=== PATIENT | male | born 1985 | race Caucasian/White ===

== ENCOUNTER 2024-11-24 14:36 | Inpatient (IN) | payer BC, SELFPAY ==
[2024-11-24] VITALS (9 sets, daily range): BP systolic 86–130; BP diastolic 62–99; BMI 21.8
[2024-11-24] MEDS: DILAUDID 1 MG IV ×2 (11:05→12:19)
[2024-11-24] MEDS: ZOFRAN 4 MG IV ×3 (11:05→23:19)
[2024-11-24] MEDS: NSS 1000 IV ×3 (11:05→17:04)
[2024-11-24 11:08] LABS: Hematocrit 43.5 % (39.0-52.0); Hemoglobin 15.8 g/dL (13.0-18.0); Mean Corp Hgb Conc. 36.3 g/dL (33.0-37.0); Mean Corpuscular Volume 80.7 fL (80.0-94.0); Nucleated Red Blood Cells % 0 % (-); Platelet Count 475 10^3/uL (130-400); Red Cell Dist. Width 13.1 % (11.5-14.5)
[2024-11-24 11:22] LABS: ALT (SGPT) 101 U/L (0-50); AST (SGOT) 75 U/L (17-59); Albumin > 6.0 g/dl (3.5-5.0); Alkaline Phosphatase 141 U/L (38-126); Blood Urea Nitrogen 40 mg/dl (9-20); Calcium 10.7 mg/dl (8.4-10.2); Carbon Dioxide 24 mmol/L (22-30); Chloride 90 mmol/L (98-107); Glucose 140 mg/dl (70-99); Potassium 3.9 mmol/L (3.5-5.1); Sodium 133 mmol/L (135-145); Total Protein 9.5 g/dl (6.3-8.2); eGFR 43.00
--- NOTE | 2024-11-24 11:25 | ED.GENMED ---
History of Present Illness
General
Chief Complaint: Generalized Pain
Source: patient
Exam Limitations: none
Time Seen by Provider: 11/24/24 10:58
History of Present Illness
History of Present Illness:
39-year male presents with abdominal cramping body cramps nausea vomiting he has a history of an ileostomy from chronic bowel issues, which he takes Dupixent for surgery was 2 years ago at [facility], also uses Percocet twice a day for chronic pain,
no meds for about 4 days after he had outpatient rotator cuff surgery by Dr. Love
Has been out of keep any fluids down as well, just had a little bit of liquid in his ostomy
Past History
Past History
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
ED Past Surgical History: Bowel resection and Orthopedic
Social History
Tobacco: Non-smoker
Alcohol: None
Personal:
Living: with family
Employment: Employed
Review of Systems
Review of Systems
All Other Systems: Not applicable
Constitutional: Reports sleep disturbance; Denies fever or fatigue
EENT: Reports no symptoms
Respiratory: Reports no symptoms
ABD/GI: Reports abdominal pain, nausea and vomiting
: Reports no symptoms
Musculoskeletal: Reports muscle stiffness
Neurological: Reports weakness
Psychiatric: Reports anxiety
Phy Exam
Physical Exam
Physical Exam:
Physical Exam
General: Anxious uncomfortable male
Neck: Lips are dry
Heart: s1/s2 regular rate and rhythm, no murmur. equal radial pulses.
Lungs: no acute respiratory distress. clear bilaterally
Abdomen: Soft, mild diffuse tenderness liquid in his ostomy bag
Neuro: alert and oriented. no focal neurological deficits
Skin: no rash
Psychiatric: Anxious redirectable cooperative
Extremities: no edema.
Course
Orders/Labs/Results
Orders:
Orders
11/24/24 10:59
Complete Blood Count/With Diff Urgent
Comprehensive Metabolic Panel Urgent
11/24/24 11:01
0.9% Sodium Chloride 1000 ml [Nss] 1,000 ml IV BOLUS
HYDROmorphone [Dilaudid] 1 mg IV NOW STA
Ondansetron Injectable [Zofran] 4 mg IV NOW STA
11/24/24 11:02
Add On- LAB Urgent
Tests Added?: lipase
Electrocardiogram (*1) Urgent
Reason for Study: CAD
EKG- Treatment ONCE
11/24/24 11:44
CT Abd/pel Without Iv Or Oral Urgent
Comment:
Reason For Exam: vomiting ARF
NSS 1000mL Bolus WIDE OPEN 0.9% Sodium Chloride 1000 ml [Nss] 1,000 ml IV BOLUS
Abnormal Lab Results
11/24/24
10:59
Plt Count 475 H 10^3/uL
(130-400)
Absolute Monos (auto) 0.8 H 10^3/uL
(0.1-0.6)
Monocytes % 9.9 H %
(1.7-9.3)
Sodium 133 L mmol/L
(135-145)
Chloride 90 L mmol/L
(98-107)
BUN 40 H mg/dl
(9-20)
Creatinine 2.0 H mg/dL
(0.7-1.3)
Glucose 140 H mg/dl
(70-99)
Calcium 10.7 H mg/dl
(8.4-10.2)
Total Bilirubin 1.7 H mg/dl
(0.2-1.3)
AST 75 H U/L
(17-59)
ALT 101 H U/L
(0-50)
Alkaline Phosphatase 141 H U/L
(38-126)
Total Protein 9.5 H g/dl
(6.3-8.2)
Albumin > 6.0 H g/dl
(3.5-5.0)
11/24/24 10:59
11/24/24 10:59
Vital Signs
Initial and Last Documented VS:
Initial Vital Signs
Temp Pulse Resp BP Pulse Ox
98.3 F 104 18 117/77 100
11/24/24 10:47 11/24/24 10:47 11/24/24 10:47 11/24/24 10:47 11/24/24 10:47
Last Documented Vital Signs
Temp Pulse Resp BP Pulse Ox
98.3 F 122 34 117/77 100
11/24/24 10:47 11/24/24 10:50 11/24/24 10:50 11/24/24 11:07 11/24/24 11:30
MDM/Problems Addressed
Differential Diagnosis Includes:
Dehydration, narcotic withdrawal anesthesia effect doubt obstruction
MDM/Problems Addressed:
Nausea vomiting pain
Chronic conditions affecting care:
Bowel resection chronic pain
Acute Exacerbation and/or Progression of Chronic Illness:
Bowel resection chronic pain
*Pulse Oximetry
SaO2: 99
Oxygen Mode of Delivery: Room air
Patient hypoxic: no
*EKG
Interpreted by ED Provider?: Yes
Interpretation: normal
Comparison EKG: no comparison EKG present
Heart Rate: 78
Rate: normal
Rhythm: sinus
Ischemia: non-specific ST changes
*Assistant Loan Processor Interpretation
Rate: normal
Interpretation: normal
Heart Rate: 78
Rhythm: sinus
*Critical Care Note
Total Time (30-74mins, 75-104mins- exclusive of procedures): Not Applicable
Update Note
Update Note:
Suspected narcotic withdrawal, will treat with narcotics antiemetics, IV fluids, check obstruction series old records from [facility] have been requested
1145 labs noted will switch obstruction series to CT without contrast to look for any renal obstruction continue hydration
ED Attending Note
-
Portions of this chart may have been created with voice recognition software.� Occasional wrong word or��sound alike� substitutions may have occurred due to the inherent limitations of voice recognition software.
Discharge Plan
Interventions
Interventions:
*Risk Screen - Suicide Last Done: 11/24/24 10:54
*General Assessment Last Done: 11/24/24 10:54
*Neglect/Abuse Screening Last Done: 11/24/24 10:54
*ED COVID-19 Vaccine History Last Done: 11/24/24 10:54
Discharge Date and Time
Print Language: KOREAN
[2024-11-24] MEDS: ROXICODONE ORAL SOLUTION 5 MG PO (12:14)
[2024-11-24 12:54] LABS: Lipase 185 U/L (23-300)
[2024-11-24] MEDS: VALIUM INJECTION 10 MG IV (13:29)
--- NOTE | 2024-11-24 14:30 | HPS.HSE ---
Addendum entered and electronically signed by Tom Aldridge MD 11/24/24 15:41:
39-year-old man came in with pain all over. Patient stated that he had right shoulder surgery recently and has been recovering and has been hurting all over. He also had several episodes of vomiting
Patient has had multiple admissions here and [facility], unclear why ER open can you chart for this patient with a different medical record number which we made him aware about.
Patient has longstanding GI history and he follows up with [facility] now. 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
On examination uncomfortable and moving around in bed because of his pain
Cardiovascular system S1-S2 appreciated
Chest clear to auscultation and
Abdomen I could not elicit any guarding, bowel sounds present, ileostomy with nonbloody light-colored stool. No melena noted
No pedal edema
Right arm on a sling
# Pain all over
CPK levels are stable
Muscle relaxant pain control
# Abdominal pain-CT abdomen pelvis without contrast as patient has elevated creatinine and also will not drink contrast because of vomiting
# Reported melena-check heme test stools
# Acute kidney injury-likely secondary to vomiting and poor p.o. intake. IV fluids.Follow creatinine
# Transaminitis-check CAT scan
# Hyponatremia in the setting of [id number]
# History of illicit drug use-check urine drug screen. PDMP reviewed
# Rotator cuff repair 11/20/2024-sling to be continued
# DVT prophylaxis-subcutaneous heparin
Discussed with ER attending
Part of this note was created using voice recognition system. Occasional wrong word or��sound alike� substitutions may have inadvertently occurred due to the inherent limitations of voice recognition software. If noted kindly bring it to my
attention for correction.
Original Note:
Family Physician
-
Family Physician: Adalberto Pino
Chief Complaint
-
Abdominal pain, muscle cramping
History of Present Illness
39-year-old male with past medical history of eosinophilic enteritis status post ileocecectomy 2014, right colectomy May 2022, ileostomy at [facility] in February 2023 presents to the ER with abdominal pain and muscle cramping. On 11/20/2024,
patient had rotator cuff surgery. After the surgery, he has not been eating much as chewing hurts his shoulder. He does endorse still drinking adequate fluids. Starting Monday, he started to notice some muscle aches and cramps. This morning at 3
AM, patient woke up with severe abdominal cramping, nausea, vomiting and 1 episode of dark stool out of his ostomy bag. He stated the dark stool was mucus-like and he had trouble getting out of his ostomy. After that 1 episode he had no recurrence
of the dark stool. He endorses significant muscle cramping in legs, arms, back and stomach as well. He endorses fevers, chills, shaking. He endorses any chest pain, heart palpitations however does have shortness of breath with pain. He denies
any hematemesis, hematochezia and currently no melena.
Of note, he has been here multiple time in the past for similar symptoms (under chart [facility]) and is well known to GI. GI history includes eosinophilic enteritis status post laparoscopic ileocecectomy in 2014 with pathology revealing mural
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 He has known history of polysubstance abuse with opioids, cocaine. He
follows with Dr. Orville Vasquez while at [facility] for GI. He is currently on Dupixent for treatment. He left AMA on 07/27/24 for similar symptoms when his IV Dilaudid was discontinued.
Of note, review of systems changed with each provider he spoke to.
In the ED, BP 117/77, tachycardic with HR 122, RR 18, afebrile satting well on room air. WBC was not elevated, Cr 2.0, Na 133, Calcium 10.7, elevated LFTs with T. bili 1.7, AST 75, ALT 101, alk phos 141. CT ab/pelvis was ordered. He received 2 L NS,
Dilaudid 1mg x2, oxy 5mg PO (although he threw up right after), diazepam 10mg. He is being admitted for further work up of abdominal pain and LENKA.
Medical History
Past Medical History
Past Medical History: Reports Other (Per below)
Additional Past Medical History:
1. Eosinophilic enteritis
2. Multiple back fractures on chronic opioids
3. Rotator Cuff Tear
4. Anxiety
Past Surgical History: Reports Other (Per below )
Additional Past Surgical History:
1. Ileocecectomy 2014
2. Right colectomy May 2022
3. Ileostomy at [facility] in February 2023
4. Rotator cuff repair 11/20/2024
Social History
Tobacco: Former Smoker (quite 2 years ago)
Alcohol: None
Drug: None and Other (Although cocaine and opioids and prior UDS)
Personal:
Living: With Family
Family History
Family History: Other (Cancer )
Allergies / Home Medications
Allergies reflects when Allergies were last updated in [facility].
Home Medications with original date entered in [facility]
Allergy/Medication List:
Allergies
Allergy/AdvReac Type Severity Reaction Status Date / Time
acetaminophen (From Tylenol) Allergy Rash Verified 11/24/24 10:49
seafood Allergy Anaphylaxis Uncoded 11/24/24 10:49
Patient stated:
Dupixent weekly
Oxycodone 10mg BID
Review of Systems
-
History Source: Patient
Constitutional: Reports Fever and Chills
Physical Exam
Vital Signs
Vital Signs
Temp Pulse Resp BP Pulse Ox
98.3 F 74 13 115/86 100
11/24/24 10:47 11/24/24 13:37 11/24/24 13:37 11/24/24 13:37 11/24/24 12:43
Physical Exam
General: Appears in Distress and Pain
HEENT: NormoCephalic
Respiratory: Clear
Cardiac: S1/S2 and Regular Rhythm
GI: Non Distended, Normal Bowel Sounds, Tender (Diffusely. Patient writhing in pain while attempting to palpate.) and Ostomy (Brown stool in ostomy)
Musculoskeletal: No Cyanosis and No Edema
Skin: Warm and Dry
Neuro: AO x 3
Psych: Agitated (in pain)
Laboratory Results
-
11/24/24 10:59
11/24/24 10:59
Laboratory Results
Total Bilirubin 1.7 mg/dl (0.2-1.3) H 11/24/24 10:59
AST 75 U/L (17-59) H 11/24/24 10:59
ALT 101 U/L (0-50) H 11/24/24 10:59
Alkaline Phosphatase 141 U/L (38-126) H 11/24/24 10:59
Lipase 185 U/L (23-300) 11/24/24 10:59
Impression/Plan
-
39-year-old male with past medical history of eosinophilic enteritis status post ileostomy status post ileostomy presents with severe abdominal pain, cramping and LENKA.
Eosinophilic enteritis
Severe abdominal pain
Nausea and vomiting
-- N.p.o. with sips of clears
-- CT abdomen pelvis without contrast unfortunately due to persistent emesis pending
-- Pain control -Oxy 5 for moderate pain, 0.25 Dilaudid for severe -allergic to Tylenol
-- Antiemetics
-- Consider GI consult
One episode pf black stool
--Hemoccult pending - currently no dark stool in ostomy
--Hg stable
--PPI
--Low clinical concerns for bleed. Will follow CBC.
LENKA
-- Likely prerenal in combination of poor p.o. intake and emesis
-- 2.0 on admission
-- UA pending
-- Check CK
-- Fluids
-- Follow BMP
Muscle cramping
-- Given poor p.o. intake over the last few days and history of multiple abdominal surgeries, concerns for electrolyte abnormalities contributing to cramping
-- Check CK, mag, Phos
-- 5 mg Flexeril now and tonight, monitor LFTs and consider increase to 3 times daily if stable
-- Elevated CK could be contributing to LENKA
Transaminitis
-- Elevated LFTs
-- Ct ab/pelvis pending
-- Monitor
Hyponatremia
--133 in setting of emesis
-- Fluids and monitor
Hypercalcemia
-- 10.7
-- Fluids
History of illicit drug use
--Check urine drug screen
--PDMP last filled 10mg Oxy BID 60 tabs for 30 days by Morelia Craig an MANUFACTURING ASSOCIATE with [facility] on 11/07/24. Prior refills from Dr. Bernard Peñaloza an interventional spine procedures and pain management Doctor at [facility].
--Tylenol allergy listed in chart - states he breaks outs in hives
--Prescribed Percocet multiple times in past according to [facility]. Unclear if tylenol is true allergy. (05/05/24, October to Jan, Mar, 2022. Prior to 2022 appears this was the most common controlled substance he was prescribed)
Thrombocytosis
-- Platelets 475
-- Follow CBC
Rotator cuff repair 11/20/2024
-- Pain management
-- PT OT
Full code
DVT heparin
This patient has additional open chart under [facility] which contains hospital admissions back to 2012. Please refer to the chart for further history. Registration unable to help on the weekend. Will attempt to merged chart on Monday.
[2024-11-24] MEDS: FLEXERIL 5 MG PO (15:02)
[2024-11-24 15:16] LABS: Magnesium 1.7 mg/dl (1.6-2.3)
[2024-11-24] MEDS: MAGNESIUM SULFATE 100 IV (17:01)
[2024-11-24] MEDS: DILAUDID 0.25 MG IV (17:06)
--- NOTE | 2024-11-24 17:50 | PTCARENOTE ---
Received patient from ED via stretcher. AAOx3, assisted to bed. Assessed and oriented to room. Complaining of leg spasms and nausea. Provided IV Dilaudid and IV Zofran as ordered. NPO except sips and meds. Call pérez in reach.
--- NOTE | 2024-11-24 18:09 | W.PN.UPDATE ---
Update Note
Progress Note Update
CT revealed 1mm non-obstructing left renal stone. Started on Flomax and urology consulted.
[2024-11-24] MEDS: FLEXERIL 10 MG PO (21:03)
[2024-11-24] MEDS: DILAUDID 0.5 MG IV (21:04)
[2024-11-25] MEDS: NSS 1000 IV (01:15)
[2024-11-25] MEDS: DILAUDID 0.5 MG IV ×2 (01:16→05:47)
[2024-11-25 04:11] LABS: Urine Character Cloudy (Clear)
[2024-11-25 04:44] VITALS: BP 116/80
[2024-11-25] MEDS: BENADRYL 12.5 MG IV (05:02)
[2024-11-25 07:33] VITALS: BP 102/64
--- NOTE | 2024-11-25 08:41 | W.PN.HOSP.TC ---
Addendum entered and electronically signed by Dariel Santoyo MD 11/25/24 11:55:
I saw and evaluated the patient. I reviewed the resident�s note and agree with findings and plan as documented in the resident�s note.
I was unable to see the patient before he left AGAINST MEDICAL ADVICE. I agree with discharging the patient on Zofran and Macrobid.
Addendum entered and electronically signed by Tammy Jefferson MD, Resident 11/25/24 11:10:
CT ab/pelvis without oral or IV contrast 11/24/24:
No acute pathology of the abdomen or pelvis identified. However, limited exam without oral and IV contrast.
Postsurgical change.
1 mm nonobstructing left renal stone.
Too small to catheterize hypodense hepatic lesions likely small cyst or hemangioma.
Mild hepatosplenomegaly.
Mild prostate hypertrophy.
No acute etiology found. Discussed 1 mL nonobstructing left renal stone with urology but but they believed it would not be contributing to pain or LENKA is nonobstructing.
Original Note:
Today's Communication/Plan
-
Patient has decided to leave AMA
Discharged with Zofran and Macrobid 100 twice daily for 7 days
Assessment / Plan
Assessment / Plan
39-year-old male with past medical history of eosinophilic enteritis status post ileostomy status post ileostomy presents with severe abdominal pain, cramping and LENKA.
Eosinophilic enteritis
Severe abdominal pain
Nausea and vomiting
-- N.p.o. with sips of clears
-- CT abdomen pelvis without contrast unfortunately due to persistent emesis pending
-- Pain control
-- Antiemetics
-- Patient is requesting to leave AMA now the IV Dilaudid has been discontinued. Evidence of p.o. intake tolerable with significant intake of apple juice overnight per nursing. Refusing p.o. Oxy and wants to go home.
One episode pf black stool
--Hemoccult pending - currently no dark stool in ostomy
--Hg stable
--PPI
--Low clinical concerns for bleed. Will follow CBC.
Urinary tract infection
--Leukocyte Estrace 3+ on UA, cultures pending
--Start ceftriaxone
--Now that patient is leaving [facility], discharged on Macrobid 100 twice daily for 7 days
LENKA
-- Likely prerenal in combination of poor p.o. intake and emesis
-- 2.0 on admission -now back to normal levels
-- UA UTI
-- CK within normal limits
-- Fluids
-- Follow BMP
Muscle cramping
-- Given poor p.o. intake over the last few days and history of multiple abdominal surgeries, concerns for electrolyte abnormalities contributing to cramping
-- Check CK, mag, Phos -all within normal limits
-- 5 mg Flexeril now and tonight, monitor LFTs and consider increase to 3 times daily if stable
Transaminitis
-- Elevated LFTs -downtrending
-- Ct ab/pelvis -enlarged on CT
-- Male leaving AMA
Hyponatremia
--132 in setting of emesis
-- Fluids and monitor
Hypercalcemia
-- Resolved
History of illicit drug use
--Check urine drug screen
--PDMP last filled 10mg Oxy BID 60 tabs for 30 days by Morelia Craig an PLASTER MACHINE TENDER with [facility] on 11/07/24. Prior refills from Dr. Bernard Peñaloza an interventional spine procedures and pain management Doctor at [facility].
--Tylenol allergy listed in chart - states he breaks outs in hives
--Prescribed Percocet multiple times in past according to [facility]. Unclear if tylenol is true allergy. (05/05/24, October to Jan, Mar, 2022. Prior to 2022 appears this was the most common controlled substance he was prescribed)
Thrombocytosis
-- Platelets 475 -today's labs pending
-- Follow CBC
Rotator cuff repair 11/20/2024
-- Pain management
-- Unable to take out of sling until December 02 per patient
Full code
DVT heparin
This patient has additional open chart under [facility] which contains hospital admissions back to 2012. Please refer to the chart for further history. Registration is aware and will attempt to merged charts on Monday.
Anticipated Discharge: Today
Subjective/Interval History
-
Date of Service: November 25, 2024
IV Dilaudid was stopped and patient requested to leave AMA unless was restarted. Patient has been tolerating p.o. per nursing and has only vomited once overnight. He has been drinking significant amount of apple juice without issue and is refusing
p.o. Oxy stating that if he takes it he will throw up.
Objective Data
-
Labs:
Laboratory Results
11/25/24
06:00
WBC Pending
Hgb Pending
Hct Pending
Plt Count Pending
Sodium Pending
Potassium Pending
Chloride Pending
Carbon Dioxide Pending
BUN Pending
Creatinine Pending
Glucose Pending
Calcium Pending
Total Bilirubin Pending
AST Pending
ALT Pending
Alkaline Phosphatase Pending
Vital Signs:
Vital Signs
Temp Pulse Resp BP Pulse Ox
97.4 F 55 16 102/64 100
11/25/24 07:33 11/25/24 07:33 11/25/24 07:33 11/25/24 07:33 11/25/24 07:33
I&O
11/24/24 11/25/24 11/26/24
06:59 06:59 06:59
Intake Total 960 / 960
Output Total 150 / 150
Balance 810 / 810
Review of Systems
-
History Source: Patient
Respiratory: Reports No Symptoms
Cardiac: Reports No Symptoms
Abdomen/GI: Reports Abdominal Pain, Nausea and Vomiting
Genitourinary: Reports No Symptoms
Musculoskeletal: Reports Muscle Pain and Arthralgias
Skin: Reports No Symptoms
Neuro: Reports No Symptoms
Physical Exam
-
General: Appears in Distress and Pain
Respiratory: Clear to Auscultation
Cardiac: Regular Rhythm and S1/S2
GI: Soft, Nondistended, Normal Bowel Sounds, Tender (Patient states his abdomen is diffusely tender. No guarding or rigidity felt.) and Ostomy (Light brown stool in ostomy. No evidence of melena)
Musculoskeletal: No Cyanosis and No Edema
Skin: Warm and Dry
Neuro: AO x 3
Psych: Agitated
--- NOTE | 2024-11-25 10:00 | PTCARENOTE ---
Patient left AMA. Signed form given by resident. Left hand INT removed. All belongings with patient. Assisted down to main lobby by PCT. picked up patient.
[2024-11-25 10:05] LABS: ALT (SGPT) 78 U/L (0-50); AST (SGOT) 54 U/L (17-59); Albumin 4.1 g/dl (3.5-5.0); Alkaline Phosphatase 95 U/L (38-126); Blood Urea Nitrogen 28 mg/dl (9-20); Calcium 9.4 mg/dl (8.4-10.2); Carbon Dioxide 29 mmol/L (22-30); Chloride 99 mmol/L (98-107); Estimated Creatinine Clearance 94 ml/min; Glucose 91 mg/dl (70-99); Magnesium 1.9 mg/dl (1.6-2.3); Potassium 3.6 mmol/L (3.5-5.1); Sodium 132 mmol/L (135-145); Total Protein 6.5 g/dl (6.3-8.2); eGFR > 60.00
--- NOTE | 2024-11-25 10:36 | W.PN.UPDATE ---
Update Note
Progress Note Update
Upon discontinuing IV Dilaudid patient has decided to leave AMA. He states that he will throw up if he takes p.o. Oxy. Per nursing he has been tolerating p.o. intake well with significant apple juice consumption overnight. AMA signed and placed
in chart.
--- NOTE | 2024-11-25 10:42 | W.DCSUMMARY ---
Discharge Summary
Discharge Data
Date of Admission: 11/24/24
Date of Discharge: 11/25/24
-
Pending Results: Yes
Additional Pending Results:
CBC
Urine Cultures
Hospital Course
Primary diagnosis:
Severe abdominal pain
LENKA
Urinary tract infection
Hypercalcemia
Hyponatremia
Transaminitis
Secondary diagnosis:
Eosinophilic enteritis
Rotator cuff repair 11/20/2024
Substance use disorder
Hospital course:
39-year-old male with past medical history of eosinophilic enteritis status post ileostomy presented to the ER with severe abdominal pain, nausea, vomiting and muscle cramps. He started to have some muscle cramps after his rotator cuff repair
surgery. The morning of 11/24, patient woke up at 3 AM with a severe stomach pain, nausea, vomiting and 1 episode of melena. In the ED, he was tachycardic, afebrile, creatinine was 2.0, sodium 133, calcium 10.7, elevated LFTs with T. bili 1.7. He
was started on pain medications, fluids and admitted for further workup. Abdomen pelvic CT was done however without oral or IV contrast due to severe emesis and LENKA. Imaging was inconclusive for acute etiology as noted below. Creatinine kinase,
magnesium and phosphate were all within normal limits. We did reach out to urology for concerns that 1 mm renal stone could be contributing to pain however they stated it would not. Urine analysis revealed UTI and substance abuse of cocaine
(opioids, tricyclics, benzodiazepines and marijuana also noted however could be due to his home medications). The next morning his LENKA resolved, LFTs started to downtrend, hypercalcemia resolved. He was started on ceftriaxone for his UTI.
Today, due to tolerating p.o. intake per nursing with significant intake of apple juice overnight, IV Dilaudid was discontinued with preference for p.o. Oxy. Upon discontinuation of the IV Dilaudid, patient became agitated and requested to leave
AMA. Patient signed AMA form and left the hospital fully aware that there could be further kidney injury, sepsis secondary to UTI or even possible . He was discharged AMA with Macrobid 100 twice daily for 7 days for UTI and Zofran for nausea.
Imaging:
CT ab/pelvis without oral or IV contrast 11/24/24:
No acute pathology of the abdomen or pelvis identified. However, limited exam without oral and IV contrast.
Postsurgical change.
1 mm nonobstructing left renal stone.
Too small to catheterize hypodense hepatic lesions likely small cyst or hemangioma.
Mild hepatosplenomegaly.
Mild prostate hypertrophy.
Discharge Plan
-
Patient Disposition: Against Medical Advice
Discharge Diagnosis/Procedures: Severe abdominal pain
Urinary tract infection
Acute kidney injury
Transaminitis
Hyponatremia
Condition: Fair
Diet: As tolerated
Activity: As tolerated
Driving Restrictions: As prior to admission
Referrals:
NONE,* [Family Provider, Internal Medicine]
Additional Discharge Medication Instructions: Original medications mentioned in the ED only included dupixent and oxycodone 10mg BID. If you are not taking these other medications as apart of your home list, then please do not take them and see your
PCP about further instructions on medications.
If your symptoms worsen, please come back to the hospital.
Prescriptions:
New
nitrofurantoin monohyd/m-cryst [Macrobid] 100 mg capsule
100 mg PO BID 7 Days Qty: 14 0RF
ondansetron 4 mg tablet,disintegrating
4 mg PO Q6H PRN (Reason: nausea and vomiting) Qty: 10 0RF
Continued
ondansetron HCl 4 mg tablet
4 mg PO TIDPRN PRN (Reason: nausea)
metoclopramide HCl 10 mg tablet
10 mg PO QIDPRN PRN (Reason: NAUSEA)
duloxetine 30 mg capsule,delayed release(DR/EC)
30 mg PO HS
oxycodone 10 mg tablet
10 mg PO BIDPRN PRN (Reason: severe pain)
Dupixent Syringe 300 mg/2 mL syringe
300 mg SC . DIRETED
Discharge Date and Time
Discharge Date/Time: 11/25/24 10:19
Print Language: ARMENIAN
[2024-11-25 11:53] LABS: Hematocrit 32.7 % (39.0-52.0); Hemoglobin 11.5 g/dL (13.0-18.0); Mean Corp Hgb Conc. 35.2 g/dL (33.0-37.0); Mean Corpuscular Volume 81.5 fL (80.0-94.0); Nucleated Red Blood Cells % 0 % (-); Platelet Count 252 10^3/uL (130-400); Red Cell Dist. Width 13.1 % (11.5-14.5)
== END 2024-11-25 10:19 | disposition left against medical advice (07) | DRG 683 ==
LOC: 4 EAST ACU 14:36
PROVIDERS: ADMITTING PHYSICIAN Hospitalist; ATTENDING PHYSICIAN Internal Medicine; EMERGENCY PHYSICIAN Emergency Medicine
DX: N17.9 Acute kidney failure, unspecified (principal); E87.1 Hypo-osmolality and hyponatremia; N39.0 Urinary tract infection, site not specified; K52.81 Eosinophilic gastritis or gastroenteritis; G89.29 Other chronic pain; F14.10 Cocaine abuse, uncomplicated; F41.9 Anxiety disorder, unspecified; R74.01 Elevation of levels of liver transaminase levels; E83.52 Hypercalcemia; R11.2 Nausea with vomiting, unspecified; F19.90 Other psychoactive substance use, unspecified, uncomplicated; D75.839 Thrombocytosis, unspecified; N20.0 Calculus of kidney; R16.2 Hepatomegaly with splenomegaly, not elsewhere classified; N40.0 Benign prostatic hyperplasia without lower urinary tract symptoms; R45.1 Restlessness and agitation; Z53.29 Procedure and treatment not carried out because of patient's decision for other reasons; Z93.2 Ileostomy status; Z90.49 Acquired absence of other specified parts of digestive tract; Z87.891 Personal history of nicotine dependence; Z79.891 Long term (current) use of opiate analgesic; Z88.6 Allergy status to analgesic agent; Z91.013 Allergy to seafood
CPT/HCPCS: 74176; 80053; 80306; 80307; 81003; 81015; 82550; 83690; 83735; 84100; 84300; 85025; 87086; 93005; 96361; 96374; 96375; 96376; 99285